=== PATIENT | male | born 1965 | race Caucasian/White ===

== ENCOUNTER 2017-09-08 12:04 | Outpatient (REF) | payer MEDICARE, MEDICAID, SELFPAY ==
[2017-09-08 18:54] LABS: HCT 51.7 % (40.0-50.0); HGB 17.3 g/dL (13.5-17.5); Mean Corp. HGB Concentration 33.5 g/dL (32.0-36.0); Mean Corpuscular Hemoglobin 30.2 pg (27.0-33.0); Mean Corpuscular Volume 90.4 fL (80-95); Mean Platelet Volume 9.7 fL (8.0-11.0); Platelet Count 237 x1000/uL (130-400); RBC 5.72 m/cumm (4.50-6.00); White Blood Cell Count 9.73 k/cumm (4.4-10.8)
[2017-09-08 18:56] LABS: Anion Gap 9.3 mmol/L (3-11); BUN 24 mg/dL (7-18); CO2 30.7 mmol/L (21.0-32.0); CREATININE 1.29 mg/dL (0.70-1.30); Calcium 8.9 mg/dL (8.5-10.1); Chloride 103 mmol/L (98-107); Estimated GFR 58.26 (mL/min/1.73m2); Glucose 81 mg/dL (70-100); Potassium 3.8 mmol/L (3.5-5.1); Sodium 143 mmol/L (136-145); TSH 2.23 uIU/mL (0.358-3.74)
== END 2017-09-08 12:05 ==
LOC: NCHCN 12:04
PROVIDERS: PCP Internal Medicine; Visit Provider Internal Medicine
DX: Z00.00 Encounter for general adult medical examination without abnormal findings (principal); F17.210 Nicotine dependence, cigarettes, uncomplicated; D22.5 Melanocytic nevi of trunk; Z79.899 Other long term (current) drug therapy; Z87.820 Personal history of traumatic brain injury
CPT/HCPCS: 80048; 85027; 84443

== ENCOUNTER 2017-09-12 11:21 | Outpatient (CLI) | payer MEDICARE, MEDICAID, SELFPAY | END 2017-09-12 11:22 | PROVIDERS: PCP Internal Medicine; Visit Provider Internal Medicine | DX: R79.89 Other specified abnormal findings of blood chemistry (principal) | CPT/HCPCS: 36415; 82668 ==

== ENCOUNTER 2018-06-11 10:30 | Emergency (ER) | payer MEDICARE, MEDICAID, SELFPAY ==
--- NOTE | 2018-06-11 10:52 | DI.CT_ITS ---
SYMPTOM/DIAGNOSIS: SEVERE BACK BRUISING, FELL, L5 PARASPINAL LUMP LUMBOSACRAL SPINE RECONSTRUCTIONS: CT reconstructions of the lumbosacral spine were performed. There are mild degenerative changes. There is no evidence of acute fracture.
--- NOTE | 2018-06-11 10:52 | DI.CT_ITS ---
SYMPTOM/DIAGNOSIS: FELL, SEVERE BACK BRUISING, L5 RT PARASPINAL LUMP, PAIN ABDOMEN AND PELVIC CT: CT examination of the abdomen and pelvis was performed without contrast administration. Images obtained through the lung bases are unremarkable. There is significant motion artifact which limits interpretation. Note is made of an apparent subcutaneous hematoma over the right gluteus musculature in this patient with a history of a fall and back bruising. This measures roughly 5 cm. in diameter. No underlying fracture is seen. No additional hematoma. No gross evidence of intra-abdominal visceral organ injury by noncontrast criteria. No free fluid or free air. CONCLUSION: Limited examination due to motion artifact and noncontrast scanning protocol. Right paramedian gluteal/subcutaneous hematoma noted.
[2018-06-11 11:38] LABS: Bilirubin Negative (Negative); Blood Negative (Negative); Clarity Clear; Glucose Negative (Negative); Ketones Negative (Negative); Leukocyte Esterase Negative (Negative); Nitrite Negative (Negative); Urobilinogen 0.2 EU/dL (Up TO 0.2); pH 6.5 (5-8)
[2018-06-11 11:39] VITALS: BP 105/73; PULSE 67; RESP 16; TEMP 36.6; O2SAT 98
--- NOTE | 2018-06-11 12:58 | W.ED.GENAD ---
Discharge Plan Disposition Patient Disposition: HOME Condition: Good Discharge Details Chief Complaint: Nk/Back Pain Clinical Impression: Hematoma Primary Care Provider: Dewey Villatoro ED Provider: Junior Patino Home Meds and New Rx's Prescriptions: No Action aspirin 325 MG tablet 325 mg PO DAILY RF: 0 simvastatin 40 MG tablet 40 mg PO HS RF: 0 fluoxetine 10 MG capsule 10 mg PO DAILY RF: 0 Discharge Instructions Instructions: Hematoma (ED) Additional Instructions: Please use warm compresses and heating pads regularly over the back and buttock to maintain close reabsorption of hematoma on the buttock. If you notice any worsening of your symptoms, or any new symptoms such as vomiting, diarrhea, fever, chills, shortness of breath, chest pain, numbness, weakness, or fainting , please return immediately to the emergency department for reevaluation. Please follow up with your primary care provider as soon as possible for reassessment and reevaluation. As always, it was a pleasure participating in your medical care today. Referrals: Dewey Villatoro [Primary Care Provider] - Medical Decision Making This is a 53-year-old male with a severe traumatic brain injury who presents today for bruising over his lower back and buttock. His fall occurred 2 to 3 days ago, he has had no complaints of pain difficulty moving, or bowel or bladder incontinence over the last 2 to 3 days since the initial event. Because of his bruising he was brought in by his care provider. Exam demonstrates no concerning red flags of midline tenderness, bowel or bladder incontinence, saddle anesthesia, or decreased rectal tone. Because of the patient's difficulty completely verbalizing his symptoms and the notable bruising we will get a CT scan to rule out significant acute fracture. Urinalysis shows no evidence of ketones, infection, or casts. No clinical evidence of rhabdomyolysis. 1:[address] scan results have returned, no evidence of acute fracture per radiologist, there is evidence of a 5 x 4 x 4 subcutaneous hematoma over the superior medial aspect of the right gluteal muscle which correlates clinically well with the small swelling area that is noted in the low back and buttock. Recommend continued heating pad, warm compresses, and close observation. I have extensively reviewed the treatment plan and discharge instructions with the patient and their family. I have addressed all patient concerns at this time. The patient and family was made aware of what symptoms to monitor for that would warrant a return to the emergency department. Discussed the plan with the patient and family, they demonstrate verbal understanding and agreement with our assessment and plan at this time. EXAM DATE/TIME: 06/11/2018 10:55 AM CLINICAL HISTORY: 53 years old, male; Signs and symptoms; Other: Fall, severe back bruising, l5 rightparaspinal lump; Additional info: Fall, severe back bruising, l5 rightparaspinal lump please read l-sine recons under abd/pel study Technique: Imaging protocol: Axial computed tomography images of the abdomen and pelvis without contrast. Coronal and sagittal reformatted images were created and reviewed. Radiation optimization: All CT scans at this facility use at least one of these dose optimization techniques: automated exposure control; mA and/or kV adjustment per patient size (includes targeted exams where dose is matched to clinical indication); or iterative reconstruction. Comparison: No relevant prior studies available. Findings: Evaluation is limited by motion artifact. Lungs: Mild dependent hypoventilatory change in the lung base. Small hiatal hernia. ABDOMEN: Liver: No focal hepatic mass. Gallbladder and bile ducts: Cholelithiasis in the contracted gallbladder. No biliary ductal dilatation. Pancreas: No pancreatic mass or ductal dilatation. Spleen: No splenomegaly. Adrenals: Unremarkable adrenals. Kidneys and ureters: Poorly defined 6 mm nodular hypodensity in the posterior right kidney. No hydronephrosis. Stomach and bowel: No significant small bowel dilatation. Prominent stool and diverticula. Appendix: Appendix not visualized. PELVIS: Bladder: Bladder dilatation. Reproductive: Unremarkable as visualized. ABDOMEN and PELVIS: Intraperitoneal space: No free fluid. Bones/joints: No acute bony injury. Degenerative change and Schmorl's nodes. Soft tissues: Subcutaneous 5.3 x 4.6 x 4.6 cm subcutaneous hematoma about the superior medial aspect of the right gluteal muscle. Heterotopic soft tissue calcifications about the right hip. Vasculature: Vascular calcification. Normal caliber of the abdominal aorta. Lymph nodes: No pathologically enlarged lymph nodes. Impression: 1. Subcutaneous 5.3 x 4.6 x 4.6 cm subcutaneous hematoma about the superior medial aspect of the right gluteal muscle. 2. Additional findings as described above. Dictated and Authenticated by: Imer Hernandez MD. Ordering:MAY Pacheco MD HPI General Date/Time Provider Initiated Documentation: 05/05/19 10:39. HPI Narrative: This is a 53-year-old male with a past medical history of cholesterol, and severe TBI who presents for evaluation of back bruising after fall. 3 to 4 days of the patient was noted to have fallen, he did hit his back. Since then he has been walking well without any difficulty, no difficulty with using his arms or legs, no bowel or bladder incontinence, however today his new [place] eye observer noticed significant bruising on his back and buttock, and brought the patient in for further evaluation. The patient has no complaints whatsoever, but is slightly limited to his chronic TBI. The observer has noticed no other abnormalities. No other modifying factors. Care provider denies seeing any dark urine, or blood-tinged urine. Related Data Home Medications Medication Instructions Recorded Confirmed aspirin 325 mg PO DAILY 10/01/15 06/11/18 fluoxetine 10 mg PO DAILY 10/01/15 06/11/18 simvastatin 40 mg PO HS 10/01/15 06/11/18 Allergies Allergy/AdvReac Type Severity Reaction Status Date / Time No Known Allergies Allergy Unverified 06/11/18 11:42 General Stated Complaint: Nk/Back Pain ROME: 3 Review of Systems Review of Systems All systems reviewed & are unremarkable except as noted in HPI and below PFSH Social History Smoking/Tobacco Use Status: Current every day Drug use: Never Exam Narrative Exam Narrative: 1.Const: Well-nourished, Well-developed, appearing stated age 2.Eyes: PERRL, no conjunctival injection, and symmetrical lids. 3.ENT: Atraumatic external nose and ears. Moist MM. Neck: Symmetric, trachea midline, No thyromegaly. 4.CVS: +S1/S2, No murmurs or gallops. Peripheral pulses 2+ and equal in all extremities. Brisk capillary refill in all extremities. 5.RESP: Unlabored respiratory effort. Clear to auscultation bilaterally. No wheezes rales or rhonchi 6.GI: Soft, Nontender/Nondistended, No hepatosplenomegaly. No guarding or rebound. 7.MSK: Normocephalic, Extremities w/o deformity or ttp No cyanosis or clubbing, Normal movement of all extremities. No midline tenderness to palpation over the CTLS spine. Mild paraspinal fullness over L4 and L5 normal ROM in flexion, extension, side bend, and rotation. Patient has +5 out of 5 strength in the lower extremities in dorsiflexion and plantarflexion, knee flexion and extension, hip flexion and extension. There is +2 over 2 dorsalis pedis pulses bilaterally. There is normal sensation to the skin with light touch at the foot, knee, and hip. Normal saddle sensation. Good sensation over the deep sural nerve area bilaterally. Rectal exam demonstrated good rectal tone, however is difficult to evaluate rectal sensation secondary to the patient's chronic mental baseline. Reflexes are symmetric and intact for patellar reflex bilaterally. +5 out of 5 strength in the medial, ulnar, radial nerve distribution bilaterally in the hands as well as intact light touch sensation to these dermatomes on the hands 8.Skin: Warm, Dry. Notable bruising over the lower back and sacrum bilaterally. 9.Neuro: primary care provider II-XII grossly intact. Sensation grossly intact, no focal neurologic deficits. 10.Psych: (AAO) x3. Appropriate mood and affect Course Vital Signs Temperature 36.6 C 06/11/18 11:39 Pulse 67 06/11/18 11:39 Respiratory Rate 16 06/11/18 11:39 Blood Pressure 105/73 06/11/18 11:39 Pulse Oximetry 98 06/11/18 11:39 Temperature 36.6 C 06/11/18 11:39 Temperature Source Skin 06/11/18 11:39 Pulse 67 06/11/18 11:39 Respiratory Rate 16 06/11/18 11:39 Respiratory Effort Non-Labored 06/11/18 11:39 Blood Pressure 105/73 06/11/18 11:39 Blood Pressure Position Sitting 06/11/18 11:39 Pulse Oximetry 98 06/11/18 11:39 Oxygen Delivery Method Room Air 06/11/18 11:39 Oxygen Flow Rate 0 06/11/18 11:39 Pain Level 0 06/11/18 11:39 Lab/Test Results Lab/Test Results: Laboratory Tests Range/Units 06/11/18 11:30 Urine Color (Yellow) Yellow Urine Clarity Clear Urine pH (5-8) 6.5 Ur Specific [place] (1.005-1.025) 1.010 Urine Protein (Negative) mg/dL Negative Urine Ketones (Negative) mg/dL Negative Urine Blood (Negative) Negative Urine Nitrite (Negative) Negative Urine Bilirubin (Negative) Negative Urine Urobilinogen (Up TO 0.2) EU/dL 0.2 Ur Leukocyte Esterase (Negative) Negative Urine Glucose (Negative) mg/dL Negative
--- NOTE | 2018-06-11 13:16 | DI.VRAD_ITS ---
EXAM: CT Abdomen and Pelvis Without Contrast EXAM DATE/TIME: 06/11/2018 10:55 AM CLINICAL HISTORY: 53 years old, male; Signs and symptoms; Other: Fall, severe back bruising, l5 rightparaspinal lump; Additional info: Fall, severe back bruising, l5 rightparaspinal lump please read l-sine recons under abd/pel study TECHNIQUE: Imaging protocol: Axial computed tomography images of the abdomen and pelvis without contrast. Coronal and sagittal reformatted images were created and reviewed. Radiation optimization: All CT scans at this facility use at least one of these dose optimization techniques: automated exposure control; mA and/or kV adjustment per patient size (includes targeted exams where dose is matched to clinical indication); or iterative reconstruction. COMPARISON: No relevant prior studies available. FINDINGS: Evaluation is limited by motion artifact. Lungs: Mild dependent hypoventilatory change in the lung base. Small hiatal hernia. ABDOMEN: Liver: No focal hepatic mass. Gallbladder and bile ducts: Cholelithiasis in the contracted gallbladder. No biliary ductal dilatation. Pancreas: No pancreatic mass or ductal dilatation. Spleen: No splenomegaly. Adrenals: Unremarkable adrenals. Kidneys and ureters: Poorly defined 6 mm nodular hypodensity in the posterior right kidney. No hydronephrosis. Stomach and bowel: No significant small bowel dilatation. Prominent stool and diverticula. Appendix: Appendix not visualized. PELVIS: Bladder: Bladder dilatation. Reproductive: Unremarkable as visualized. ABDOMEN and PELVIS: Intraperitoneal space: No free fluid. Bones/joints: No acute bony injury. Degenerative change and Schmorl's nodes. Soft tissues: Subcutaneous 5.3 x 4.6 x 4.6 cm subcutaneous hematoma about the superior medial aspect of the right gluteal muscle. Heterotopic soft tissue calcifications about the right hip. Vasculature: Vascular calcification. Normal caliber of the abdominal aorta. Lymph nodes: No pathologically enlarged lymph nodes. IMPRESSION: 1. Subcutaneous 5.3 x 4.6 x 4.6 cm subcutaneous hematoma about the superior medial aspect of the right gluteal muscle. 2. Additional findings as described above. Dictated and Authenticated by: Imer Hernandez MD. Ordering:MAY Pacheco MD
== END 2018-06-11 13:45 | disposition home or self-care (01) ==
PROVIDERS: Emergency Provider Student in an Organized Health Care Education/Training Program; PCP Internal Medicine
DX: S30.0XXA Contusion of lower back and pelvis, initial encounter (principal); W19.XXXA Unspecified fall, initial encounter; Z87.820 Personal history of traumatic brain injury
CPT/HCPCS: 99284; 74176; 81003

== ENCOUNTER 2019-03-01 15:17 | Outpatient (REF) | payer MEDICARE, MEDICAID, SELFPAY ==
[2019-03-01 19:32] LABS: HCT 49.6 % (40.0-50.0); HGB 16.5 g/dL (13.5-17.5); Mean Corp. HGB Concentration 33.3 g/dL (32.0-36.0); Mean Corpuscular Hemoglobin 30.6 pg (27.0-33.0); Mean Corpuscular Volume 91.9 fL (80-95); Mean Platelet Volume 9.6 fL (8.0-11.0); Platelet Count 263 x1000/uL (130-400)
[2019-03-01 19:51] LABS: ALT 38 U/L (16-63); AST 24 U/L (15-37); Albumin 4.1 g/dL (3.4-5.0); Alkaline Phosphatase 81 U/L (46-116); Anion Gap 6.6 mmol/L (3-11); BUN 21 mg/dL (7-18); Bilirubin, Total 0.4 mg/dL (0.2-1.0); CO2 33.4 mmol/L (21.0-32.0); CREATININE 1.25 mg/dL (0.70-1.30); Calcium 8.9 mg/dL (8.5-10.1); Chloride 104 mmol/L (98-107); Estimated GFR 59.97 (mL/min/1.73m2); Glucose 89 mg/dL (74-106); LDL CHOLESTEROL 69 mg/dL (<100); Potassium 3.9 mmol/L (3.5-5.1); Sodium 144 mmol/L (136-145); TSH 2.33 uIU/mL (0.36-3.74); Total Protein 7.5 g/dL (6.4-8.2)
== END 2019-03-01 15:37 ==
LOC: NCHCN 15:17
PROVIDERS: PCP Internal Medicine; Visit Provider Internal Medicine
DX: E78.5 Hyperlipidemia, unspecified (principal); F17.210 Nicotine dependence, cigarettes, uncomplicated; Z87.820 Personal history of traumatic brain injury
CPT/HCPCS: 80053; 83721; 85027; 84443

== ENCOUNTER 2019-04-05 01:58 | Outpatient (CLI) | payer MEDICARE, MEDICAID, SELFPAY ==
--- NOTE | 2019-04-05 | DI.CTLCSR_ITS ---
EXAM: CT CHEST LUNG CANCER SCREEN CLINICAL HISTORY: CURRENT SMOKER F17.210 TECHNIQUE: Low-dose noncontrast COMPARISON: No exams were available for comparison FINDINGS: The heart size is normal. Coronary artery calcifications are seen. The aorta is normal in diamete r. There are no pleural or pericardial effusions or evidence of adenopathy. There are no suspicious pulmonary nodules. No infiltrates are seen. No suspicious bony abnormalities are identified. Gall stones are incidentally noted. IMPRESSION: Lung rads category 1. Annual low-dose screening CT is recommended.
== END 2019-04-05 02:18 ==
PROVIDERS: PCP Internal Medicine; Visit Provider Internal Medicine
DX: Z12.2 Encounter for screening for malignant neoplasm of respiratory organs (principal); F17.210 Nicotine dependence, cigarettes, uncomplicated; K80.20 Calculus of gallbladder without cholecystitis without obstruction
CPT/HCPCS: G0297